=== PATIENT | female | born 1970 | race Caucasian/White ===

== ENCOUNTER 2018-07-17 15:02 | Emergency (ER) | payer OTHER ==
[~2018-07-17] VITALS: Ht 175.3 cm; Wt 79.4 kg
[~2018-07-17 15:02] MED LIST: BENADRYL50 MG PO; DIFLUCAN PO; RESTORIL30 MG; SEROQUEL200 MG; XANAX0.25 MG PO; ZITHROMAX500 MG PO; ZOLOFT50 MG PO; ZYRTEC10 MG PO; [UNRECOGNIZED DRUG - OTHER]; [UNRECOGNIZED DRUG - SUPPLY]
== END 2018-07-17 18:32 | disposition home or self-care (01) ==
LOC: ER 15:02
DX: R51 Headache (principal)

== ENCOUNTER 2020-10-30 15:08 | Emergency (ER) | payer OTHER ==
[~2020-10-30] VITALS: Ht 172.7 cm; Wt 76.7 kg
== END 2020-10-30 22:46 | disposition home or self-care (01) ==
LOC: ER 15:08
DX: R30.0 Dysuria (principal); K59.09 Other constipation; R10.84 Generalized abdominal pain; Z11.52 Encounter for screening for COVID-19

== ENCOUNTER → 2023-01-19 | Emergency (ER) | payer OTHER ==
[~2023-01-19] VITALS: Ht 175.3 cm; Wt 81.6 kg
[~2023-01-19] MED LIST changes: +CRESTOR20 MG PO; +LEVOTHYROXINE25 MCG PO; +LOVAZA1 GM PO; +VITAMIN D310 MC4 PO; +XANAX XR0.5 MG PO; +ZOLOFT100 MG PO
== END | disposition home or self-care (01) ==
LOC: ER 09:44
DX: K80.20 Calculus of gallbladder without cholecystitis without obstruction (principal); F32.9 Major depressive disorder, single episode, unspecified; Z88.6 Allergy status to analgesic agent; Z88.0 Allergy status to penicillin; Z88.8 Allergy status to other drugs, medicaments and biological substances

== ENCOUNTER 2023-01-21 12:53 | Emergency (ER) | payer OTHER ==
[~2023-01-21] VITALS: Ht 175.3 cm; Wt 84.8 kg
== END 2023-01-21 15:31 | disposition home or self-care (01) ==
LOC: ER 12:53
DX: R30.0 Dysuria (principal); Z88.6 Allergy status to analgesic agent; Z88.0 Allergy status to penicillin; Z88.8 Allergy status to other drugs, medicaments and biological substances

== ENCOUNTER 2023-02-16 08:53 | Emergency (ER) | payer OTHER ==
[~2023-02-16] VITALS: Ht 175.3 cm; Wt 82.1 kg
== END 2023-02-16 11:02 | disposition home or self-care (01) ==
LOC: ER 08:53
DX: R30.0 Dysuria (principal); F32.9 Major depressive disorder, single episode, unspecified; Z88.6 Allergy status to analgesic agent; Z88.0 Allergy status to penicillin; Z88.8 Allergy status to other drugs, medicaments and biological substances

== ENCOUNTER 2024-04-22 09:45 | Emergency (ER) | payer OTHER ==
[~2024-04-22] VITALS: Ht 165.3 cm; Wt 68.9 kg
[2024-04-22] MEDS ORDERED: QUETIAPINE FUM200 MG PO (10:01)
[2024-04-22] MEDS ORDERED: COZAAR25 MG PO (10:01)
[2024-04-22] MEDS ORDERED: ORPHENADRINE CITRATE 30 MG/ML AMPUL IM STA (10:17)
[2024-04-22] MEDS ORDERED: DEXAMETHASONE SODIUM PHOSPHATE 4 MG/ML VIAL IM STA (10:18)
[2024-04-22] MEDS ORDERED: DEXAMETHASONE SODIUM PHOSPHATE 4 MG/ML VIAL ONE (10:25)
== END 2024-04-22 12:41 | disposition home or self-care (01) ==
LOC: ER 09:46
DX: S13.4XXA Sprain of ligaments of cervical spine, initial encounter (principal); W31.89XA Contact with other specified machinery, initial encounter; Y93.B1 Activity, exercise machines primarily for muscle strengthening; Y92.39 Other specified sports and athletic area as the place of occurrence of the external cause; Y99.9 Unspecified external cause status; M51.36 Other intervertebral disc degeneration, lumbar region; Z88.8 Allergy status to other drugs, medicaments and biological substances; Z88.6 Allergy status to analgesic agent; Z88.0 Allergy status to penicillin

== ENCOUNTER 2024-07-02 10:39 | Emergency (ER) | payer OTHER ==
[~2024-07-02] VITALS: Ht 175.3 cm; Wt 63.5 kg
[~2024-07-02 10:39] MED LIST changes: +COZAAR25 MG PO; +QUETIAPINE FUM200 MG PO
[2024-07-02] MEDS ORDERED: CHOLESTYRAMINE/ASPARTAME LIGHT 4 G/PKT PACKET PO ONE (11:30)
[2024-07-02] MEDS ORDERED: FAMOtidine 10 MG/ML (4ML VIAL) IV ONE (11:30)
[2024-07-02] MEDS ORDERED: 0.9 % SODIUM CHLORIDE 1,000 ML IV ONE (11:30)
[2024-07-02 11:48] LABS: HEMATOCRIT 37.8 % (36.0-45.00); MEAN CELL VOLUME 94.4 fL (80.00-100.00); MEAN CORPUSCULAR HEMOGLOBIN 32.5 pg (27.00-32.0); MEAN CORPUSCULAR HGB CONC 34.4 g/dl (32.0-36.0); PLATELET COUNT 195 K/uL (150-450); RED BLOOD COUNT 4.01 M/uL (4.00-6.00)
[2024-07-02 12:35] LABS: ALBUMIN 3.7 gm/dL (3.4-5.0); BILIRUBIN TOTAL 0.46 mg/dL (0.3-1.2); CALCIUM 9.1 mg/dL (8.5-10.1); CREATININE SERUM 0.88 mg/dL (0.55-1.02); GFR 67.48; GLOBULINA 3.5 G/DL (2.4-3.5); POTASSIUM 4.09 mEq/L (3.5-5.1); TOTAL PROTEIN 7.2 gm/dL (6.4-8.2)
[2024-07-02 14:48] LABS: PH,URINE 6.5 (5.0-8.0); URINE APPEARANCE Clear; URINE BILIRRUBIN Negative (NEGATIVE); URINE BLOOD Negative; URINE COLOR Yellow; URINE GLUCOSE Negative (NEGATIVE); URINE KETONE Negative (NEGATIVE); URINE LEUKOCYTE Negative; URINE NITRATE Negative; URINE PROTEIN Negative (NEGATIVE); URINE UROBILINOGEN 0.2 E.U./dl
[2024-07-02 14:52] LABS: URINE BACTERIA 2494.2 uL (0.0-1933); URINE EPITHELIAL CELLS 26.4 uL (0.0-38.8); URINE RBC 6.1 uL (0.0-20.8); URINE WBC 17.1 uL (0.0-23.2)
[2024-07-02] MEDS ORDERED: QUESTRAN PACKET4 GM PO (15:36)
== END 2024-07-02 15:52 | disposition home or self-care (01) ==
LOC: ER 10:41
PROVIDERS: General Practice
DX: K58.9 Irritable bowel syndrome, unspecified (principal); R10.32 Left lower quadrant pain; R19.7 Diarrhea, unspecified; I10 Essential (primary) hypertension; E03.8 Other specified hypothyroidism; Z88.0 Allergy status to penicillin; Z88.6 Allergy status to analgesic agent
CPT/HCPCS: 36415; 74177; Q9965

== ENCOUNTER 2024-07-04 10:53 | Inpatient (IN) | payer OTHER ==
[~2024-07-04] VITALS: Ht 114.3 cm; Wt 68.0 kg
[~2024-07-04 10:53] MED LIST changes: +QUESTRAN PACKET4 GM PO
[2024-07-04] MEDS ORDERED: LEVOTHYROXINE25 MCG (12:24)
[2024-07-04] MEDS ORDERED: XANAX0.25 MG (12:24)
[2024-07-04] MEDS ORDERED: TRAZODONE HCL100 MG (12:25)
--- NOTE | 2024-07-04 12:30 | NUR ---
SE RECIBE PACIENTE ALERTA Y ORIENTADA X 3 ESFERAS LA CUAL INDICA QUE VISITO LA GRETA DE EMERGENCIA EL SABADO Y QUE LE INDICARON QUE TIENE CALCULOS EN LA VESICULA. REFIERE QUE EL DR.RICKY THAYER LE INDICO QUE VINIERA A ER DEBIDO A QUE UN CALCULO ESTA OBSTRUYENDO EN LA VESICULA.
[2024-07-04] MEDS ORDERED: 0.9 % SODIUM CHLORIDE 1,000 ML IV SCH ×2 (13:00→19:15)
[2024-07-04 13:27] LABS: PH,URINE 7.5 (5.0-8.0); URINE APPEARANCE Clear; URINE BILIRRUBIN Negative (NEGATIVE); URINE BLOOD Negative; URINE COLOR Yellow; URINE GLUCOSE Negative (NEGATIVE); URINE KETONE Negative (NEGATIVE); URINE LEUKOCYTE Negative; URINE NITRATE Positive; URINE PROTEIN Negative (NEGATIVE); URINE UROBILINOGEN 0.2 E.U./dl
[2024-07-04 13:32] LABS: URINE EPITHELIAL CELLS 56.6 uL (0.0-38.8); URINE RBC 9.6 uL (0.0-20.8); URINE WBC 30.7 uL (0.0-23.2)
[2024-07-04 13:33] LABS: URINE BACTERIA > 9821.5 uL (0.0-1933)
--- NOTE | 2024-07-04 13:38 | NUR ---
PTE EVALUADA POR EL FANI GRAMAJO QUIEN ORDENA TRATAMIENO LA CUAL SE EJECUTA POR MS.SOSA LARSEN , SE MANTIENE BAJO OBSERVACION.
[2024-07-04 13:56] LABS: HEMATOCRIT 35.9 % (36.0-45.00); HEMOGLOBIN 12.1 g/dL (12.0-15.00); MEAN CELL VOLUME 95.8 fL (80.00-100.00); MEAN CORPUSCULAR HEMOGLOBIN 32.4 pg (27.00-32.0); MEAN CORPUSCULAR HGB CONC 33.8 g/dl (32.0-36.0); PLATELET COUNT 157 K/uL (150-450); RED BLOOD COUNT 3.74 M/uL (4.00-6.00); RED CELL DISTRIBUTION WIDTH 12.9 % (11.5-14.5)
[2024-07-04 14:19] LABS: CALCIUM 8.6 mg/dL (8.5-10.1); CREATININE SERUM 0.98 mg/dL (0.55-1.02); GFR 59.6; POTASSIUM 3.76 mEq/L (3.5-5.1)
[2024-07-04 14:33] LABS: INR 1.08; PARTIAL THROMBOPLASTIN TIME 27.1 SECONDS (22.0-34.0); PROTHROMBIN TIME 11.7 SECONDS (9.0-11.5)
[2024-07-04] MEDS ORDERED: CIPROFLOXACIN IN 5 % DEXTROSE 400 MG/200 ML PIGGYBAG IV ONE (17:00)
[2024-07-04 18:23] LABS: ALBUMIN 3.5 gm/dL (3.4-5.0); BILIRUBIN TOTAL 0.39 mg/dL (0.3-1.2); BILIRUBIN,CONJUGATED 0.15 mg/dL (0.0-0.2); BILIRUBIN,UNCONJUGATED 0.24 mg/dL (0.0-0.6); TOTAL PROTEIN 6.8 gm/dL (6.4-8.2)
[2024-07-04] MEDS ORDERED: METRONIDAZOLE/SODIUM CHLORIDE 100 ML IV SCH (19:12)
[2024-07-04] MEDS ORDERED: ONDANSETRON HCL 4 MG in 0.9 % SODIUM CHLORIDE 50 ML IV PRN (19:15)
[2024-07-04] MEDS ORDERED: MORPHINE SULFATE 4 MG/ML VIAL IV SCH (20:00)
[2024-07-04 20:24] LABS: INR 1.08; PARTIAL THROMBOPLASTIN TIME 29.1 SECONDS (22.0-34.0); PROTHROMBIN TIME 11.7 SECONDS (9.0-11.5)
[2024-07-04 20:53] VITALS: BP 135/85
[2024-07-04] MEDS ORDERED: CIPROFLOXACIN IN 5 % DEXTROSE 200 ML IV SCH (21:00)
[2024-07-05 00:39] VITALS: BP 114/60; O2SAT 100
[2024-07-05] MEDS ORDERED: LEVOTHYROXINE SODIUM 25 MCG TABLET PO SCH (06:00)
[2024-07-05] MEDS ORDERED: LOSARTAN POTASSIUM 25 MG TABLET PO SCH (09:00)
[2024-07-05] MEDS ORDERED: SERTRALINE HCL 100 MG TABLET PO SCH (09:00)
[2024-07-05] MEDS ORDERED: PANTOPRAZOLE SODIUM 40 MG/VIAL VIAL IV SCH (09:00)
[2024-07-05 09:40] VITALS: BP 122/65; O2SAT 98
[2024-07-05] MEDS ORDERED: MORPHINE SULFATE 4 MG/ML CARTRIDGE IV SCH (14:00)
[2024-07-05] MEDS ORDERED: BUPIVACAINE HCL 30 ML VIAL IJ ONE (14:00)
[2024-07-05] MEDS ORDERED: LIDOCAINE HCL 1%/EPINEPHRINE 20ML VIAL IJ ONE (14:00)
[2024-07-05] MEDS ORDERED: RINGERS SOLUTION,LACTATED 1,000 ML IV SCH (15:15)
[2024-07-05] MEDS ORDERED: MORPHINE SULFATE 2 MG/ML CARTRIDGE IV ONE (16:15)
[2024-07-05] MEDS ORDERED: GABAPENTIN 300 MG CAPSULE PO SCH (17:00)
[2024-07-05] MEDS ORDERED: ACETAMINOPHEN 325 MG TABLET PO SCH (17:00)
[2024-07-05] MEDS ORDERED: TRAZODONE HCL 50 MG TABLET PO SCH (17:00)
[2024-07-05] MEDS ORDERED: MORPHINE SULFATE 4 MG/ML VIAL IV ONE (17:15)
[2024-07-06] VITALS: BP 117/68; O2SAT 97
[2024-07-06 01:12] LABS: URINE APPEARANCE Clear; URINE BILIRRUBIN Negative (NEGATIVE); URINE BLOOD Negative; URINE COLOR Yellow; URINE GLUCOSE Negative (NEGATIVE); URINE LEUKOCYTE Negative; URINE NITRATE Negative; URINE PROTEIN Negative (NEGATIVE)
[2024-07-06 01:15] LABS: URINE EPITHELIAL CELLS 51.3 uL (0.0-38.8); URINE RBC 9.3 uL (0.0-20.8); URINE WBC 6.3 uL (0.0-23.2)
[2024-07-06 01:20] LABS: URINE KETONE 40 (NEGATIVE)
[2024-07-06 06:48] LABS: HEMATOCRIT 39.3 % (36.0-45.00); HEMOGLOBIN 13.8 g/dL (12.0-15.00); MEAN CELL VOLUME 93.9 fL (80.00-100.00); MEAN CORPUSCULAR HGB CONC 35.1 g/dl (32.0-36.0); PLATELET COUNT 181 K/uL (150-450); RED BLOOD COUNT 4.18 M/uL (4.00-6.00)
[2024-07-06 07:18] LABS: ALBUMIN 3.6 gm/dL (3.4-5.0); BILIRUBIN TOTAL 0.57 mg/dL (0.3-1.2); CALCIUM 8.8 mg/dL (8.5-10.1); CREATININE SERUM 0.72 mg/dL (0.55-1.02); GFR 85.06; GLOBULINA 3.1 G/DL (2.4-3.5); MAGNESIUM 1.8 mg/dL (1.8-2.4); POTASSIUM 4.1 mEq/L (3.5-5.1); TOTAL PROTEIN 6.7 gm/dL (6.4-8.2)
[2024-07-06 08:00] VITALS: BP 125/67; O2SAT 100
[2024-07-06] MEDS ORDERED: ACETAMINOPHEN500 M1 PO (11:06)
== END 2024-07-06 14:35 | disposition home or self-care (01) | DRG 419 ==
LOC: ER 10:55 → SEC-K 20:17 → SURH 20:17
PROVIDERS: Colon & Rectal Surgery; Emergency Medicine; General Practice; ADMIT Internal Medicine; ATTEND Internal Medicine
PROC: BW40ZZZ Ultrasonography of Abdomen (ICD-10-PCS; 2024-07-04)
PROC: 0FT44ZZ Resection of Gallbladder, Percutaneous Endoscopic Approach (ICD-10-PCS; principal; 2024-07-05 14:45)
DX: K80.10 Calculus of gallbladder with chronic cholecystitis without obstruction (principal); I10 Essential (primary) hypertension; E03.9 Hypothyroidism, unspecified; E78.5 Hyperlipidemia, unspecified

== ENCOUNTER 2025-01-24 16:40 | Emergency (ER) | payer OTHER ==
[~2025-01-24] VITALS: Ht 175.3 cm; Wt 63.5 kg
[~2025-01-24 16:40] MED LIST changes: +ACETAMINOPHEN500 M1 PO; +LEVOTHYROXINE25 MCG; +TRAZODONE HCL100 MG; +XANAX0.25 MG
[2025-01-24] MEDS ORDERED: ONDANSETRON HCL 2 MG/ML VIAL IV STA (19:42)
[2025-01-24] MEDS ORDERED: FAMOTIDINE/PF 20 MG/2 ML VIAL IV PUSH STA (19:42)
[2025-01-24] MEDS ORDERED: 0.9 % SODIUM CHLORIDE 1,000 ML IV STA (19:42)
[2025-01-24] MEDS ORDERED: LACTOBACILLUS ACIDOPHILUS 1 CAP CAP PO STA (19:43)
[2025-01-24] MEDS ORDERED: LACTOBACILLUS ACIDOPHILUS 1 CAP CAP PO ONE (19:49)
[2025-01-24] MEDS ORDERED: FAMOTIDINE/PF 20 MG/2 ML VIAL ONE (19:50)
[2025-01-24 20:10] LABS: BASO % 0.3 % (0.1-1.2); HEMATOCRIT 42.4 % (34.1-44.9); HEMOGLOBIN 14.3 g/dL (11.2-15.7); LYMPH # 1.88 (1.18-3.74); LYMPH % 18.1 % (19.3-53.1); MEAN CORPUSCULAR HEMOGLOBIN 31.2 pg (25.6-32.2); MONO # 0.91 (0.24-0.82); MONO % 8.8 % (4.7-12.5); NEUT # 7.41 (1.56-6.13); NEUT % 71.2 % (34.0-71.1); PLATELET COUNT 233 K/uL (163-369); RED BLOOD COUNT 4.58 M/uL (3.93-5.22); RED CELL DISTRIBUTION WIDTH 11.9 % (11.6-14.4)
[2025-01-24 20:30] LABS: CALCIUM 8.7 mg/dL (8.5-10.1); CREATININE SERUM 0.98 mg/dL (0.55-1.02); GFR 59.6; POTASSIUM 3.8 mEq/L (3.5-5.1)
[2025-01-24] MEDS ORDERED: INTESTINEX680 M1 PO (23:25)
[2025-01-24] MEDS ORDERED: IMODIUM A-D2 MG PO (23:25)
[2025-01-24] MEDS ORDERED: PEPCID AC20 MG PO (23:25)
[2025-01-24] MEDS ORDERED: ONDANSETRON HCL 2 MG/ML VIAL IM STA (23:43)
[2025-01-24] MEDS ORDERED: ONDANSETRON HCL 2 MG/ML VIAL ONE (23:45)
== END 2025-01-25 00:13 | disposition home or self-care (01) ==
LOC: ER 16:40
PROVIDERS: General Practice
DX: R19.7 Diarrhea, unspecified (principal); Z88.6 Allergy status to analgesic agent; Z88.0 Allergy status to penicillin; K58.8 Other irritable bowel syndrome

== ENCOUNTER 2025-07-31 06:52 | Emergency (ER) | payer OTHER ==
[~2025-07-31] VITALS: Ht 175.3 cm; Wt 68.0 kg
[~2025-07-31 06:52] MED LIST changes: +IMODIUM A-D2 MG PO; +INTESTINEX680 M1 PO; +PEPCID AC20 MG PO
[2025-07-31 10:51] LABS: BASO % 0.8 % (0.1-1.2); EOS # 0.03 (0.04-0.54); EOS % 0.6 % (0.7-7.0); LYMPH # 1.35 (1.18-3.74); LYMPH % 28.5 % (19.3-53.1); MEAN PLATELET VOLUME 10.40 fl (9.4-12.4); MONO # 0.55 (0.24-0.82); MONO % 11.6 % (4.7-12.5); NEUT # 2.76 (1.56-6.13); NEUT % 58.3 % (34.0-71.1); RED CELL DISTRIBUTION WIDTH 12.6 % (11.6-14.4)
[2025-07-31 11:01] LABS: URINE APPEARANCE Clear; URINE BILIRRUBIN Negative (NEGATIVE); URINE BLOOD Negative; URINE COLOR Yellow; URINE GLUCOSE Negative (NEGATIVE); URINE KETONE Negative (NEGATIVE); URINE LEUKOCYTE Trace; URINE NITRATE Negative; URINE PROTEIN Negative (NEGATIVE); URINE UROBILINOGEN 0.2 E.U./dl
[2025-07-31 11:05] LABS: URINE BACTERIA 223.0 uL (0.0-1933); URINE EPITHELIAL CELLS 12.9 uL (0.0-38.8); URINE RBC 2.4 uL (0.0-20.8); URINE WBC 14.9 uL (0.0-23.2)
[2025-07-31 11:36] LABS: URINE CAST 0.00 uL (0.0-1.40)
[2025-07-31 12:09] LABS: COVID-19 AG NEGATIVE (NEGATIVE)
== END 2025-07-31 16:53 | disposition home or self-care (01) ==
LOC: ER 06:53
PROVIDERS: Emergency Medicine
DX: A60.00 Herpesviral infection of urogenital system, unspecified (principal); J11.1 Influenza due to unidentified influenza virus with other respiratory manifestations; I10 Essential (primary) hypertension; Z20.822 Contact with and (suspected) exposure to COVID-19; Z88.6 Allergy status to analgesic agent; Z88.0 Allergy status to penicillin